=== PATIENT | female | born 1970 | race Caucasian/White ===

== ENCOUNTER 2018-03-11 18:24 | Inpatient (IN) | payer OTHER ==
[~2018-03-11] VITALS: Ht 170.2 cm; Wt 65.0 kg
[~2018-03-11 18:24] MED LIST: LEVE-5; OXCA600T3; [UNRECOGNIZED DRUG - OTHER]
[2018-03-11 21:51] VITALS: BP 123/71; PULSE 74; RESP 19
[2018-03-11 21:54] VITALS: PULSE 68
[2018-03-11] MEDS ORDERED: LEVE500S8 PO (21:58)
[2018-03-11] MEDS ORDERED: ATOR20TA38 PO (21:58)
[2018-03-11] MEDS ORDERED: LAMO100T83 PO (21:58)
[2018-03-11] MEDS ORDERED: LEVO-86 PO (21:58)
[2018-03-11] MEDS ORDERED: FLUO40CA10 PO (21:58)
[2018-03-11] MEDS ORDERED: OXYC-279 PO (21:58)
[2018-03-11] MEDS ORDERED: IBUP-1982 PO (21:58)
[2018-03-11] MEDS ORDERED: ALPR1TAB2 PO (21:58)
[2018-03-11] MEDS ORDERED: morphine SULFATE/PF (2 MG/2 ML) SYG IV STA (22:00)
[2018-03-11] MEDS: ONDANSETRON 4 MG INJ IV PRN (22:17)
[2018-03-11] MEDS: HEPARIN 5,000 UNIT/1 ML VIAL SC SCH (22:26)
[2018-03-11] MEDS ORDERED: HYDROCODONE/APAP (5/325) TAB PO PRN (22:30)
[2018-03-11] MEDS ORDERED: NACL 0.9% 3 ML SYG IV SCH (22:30)
[2018-03-11] MEDS ORDERED: BISACODYL (EC) 5 MG TAB PO PRN (22:30)
[2018-03-11] MEDS ORDERED: ACETAMINOPHEN 325 MG TAB PO PRN (22:30)
[2018-03-11] MEDS ORDERED: NITROGLYCERIN (SL) 0.4 MG TAB SL PRN (22:30)
[2018-03-11] MEDS ORDERED: DOCUSATE SODIUM 100 MG CAP PO PRN (22:30)
[2018-03-11 22:33] VITALS: Ht 170.2 cm; Wt 65.0 kg
--- NOTE | 2018-03-11 23:12 | HP ---
Date/Time of Note Date/Time of Note DATE: 03/11/18 TIME: 22:59 Assessment/Plan VTE Prophylaxis Pharmacological prophylaxis: heparin Assessment/Plan Hospital Course This is a 47-year female being admitted to the telemetry floor for: #1 multifocal large alveolitis: CT chest angiogram: Multifocal large alveolitis concerning for extrinsic allergic reaction, cryptogenic organizing pneumonia, or atypical infection. There is no evidence of pulmonary embolism. Patient at the current time does have an elevated white blood cell count but she is afebrile. At the current time will obtain blood cultures x2, will check respiratory studies and cultures, will check HIV. Will start patient Mom broad-spectrum antibiotics of vancomycin and Zosyn. Will consult pulmonary for further treatment strategy. We will also obtain an ABG. High-resolution chest CT in the a.m. Will check lactic acid level. Robitussin-DM for cough, Toradol/morphine for chest wall pain. Given the patient may have possible cryptogenic organizing pneumonia will also put the patient on daily dose of prednisone 60 mg p.o. #2 seizure disorder: Continue Keppra, Lamictal, will need to verify her lamictal dosing #3 hypothyroidism: We will check TSH, continue levothyroxine #4 hyperlipidemia: Check lipid panel #5 mood disorder: Patient has a history of depression, anxiety, will resume patient's home medications #6 DVT GI prophylaxis: Heparin, Protonix Further treatment strategy will be implemented as per the clinical course. Result Diagram: 03/11/188 Results 24hrs Laboratory Tests Test 03/11/18 22:28 White Blood Count 13.4 H Red Blood Count 3.21 L Hemoglobin 11.0 L Hematocrit 33.3 L Mean Corpuscular Volume 103.7 H Mean Corpuscular Hemoglobin 34.3 H Mean Corpuscular Hemoglobin Concent 33.0 Red Cell Distribution Width 12.0 Platelet Count 218 Mean Platelet Volume 9.3 Immature Granulocytes % 0.300 Neutrophils % 83.2 H Lymphocytes % 13.7 L Monocytes % 2.5 Eosinophils % 0.1 Basophils % 0.2 Nucleated Red Blood Cells % 0.0 Immature Granulocytes # 0.040 H Neutrophils # 11.2 H Lymphocytes # 1.8 Monocytes # 0.3 Eosinophils # 0.0 Basophils # 0.0 Nucleated Red Blood Cells # 0.0 HPI/ROS Admit Date/Time Admit Date/Time Mar 11, 2018 at 21:08 Hx of Present Illness Chief complaint: Cough This is a 47-year-old female with a history of seizures, migraines, chronic back pain, anxiety, depression, panic disorder who presented to [facility] with complaints of a cough. Patient reports that she originally was diagnosed on 03/06/2018 with a bronchitis and was started on antibiotics and given steroids. Her symptoms did not get better and she called her primary care doctor today who over the phone stated that she did not sound good and she wanted to go get evaluated again. She continues to have a cough as well as shortness of breath and dyspnea. She denies any fevers or chills. No sick contacts or recent travel. Pertinent laboratory findings at [facility] showed a a elevated d-dimer of 1.19 white blood cell count of 10.6 hemoglobin 11.6 hematocrit of 34.2 platelets of 225. Alk phos is elevated at 170 creatinine was 0.6. She underwent a CT angiogram of the chest which showed: Multifocal large alveolitis concerning for possible cryptogenic organizing pneumonia versus atypical infection. Patient was given ceftriaxone and azithromycin. Upon arrival to [facility] patient reports that she is having left lateral wall pain secondary to her persistent cough. She is trying not to cough as a cause of her pain. She denies any sick contacts. She does report that when her symptoms started in the beginning of March she was having dark brown sputum however at the current time she is not producing any more sputum with her cough. Pertinent laboratory findings from the transfer facility below, please see chart for full details: EKG: Normal sinus rhythm at approximately 83 bpm Influenza: Negative 03/11/2018: CT chest angiogram: Multifocal large alveolitis concerning for extrinsic allergic reaction, cryptogenic organizing pneumonia, or atypical infection. There is no evidence of pulmonary embolism. Allergies: IV Benadryl, tramadol Medications: See MAR ROS Const: As per HPI Eyes : No pain discharge or redness or change in visual acuity ENT: No pain, sore throat, congestion, congestion, dysphagia or discharge Respiratory: As per HPI Cardiovascular: No chest pain, palpitation, PND, or edema GI : no change in appetite, abdominal pain, nausea, vomiting, diarrhea, constipation, or change in the color his stool Genitourinary: No dysuria, hematuria, flank pain , discharge or CVA tenderness Musculoskeletal: As per HPI Skin: No rash, bruising or hives Neuro: No headache, dizziness, syncope, seizure, focal weakness Endocrine: No polyuria, polydipsia, temperature intolerance Psych: No hallucination, depression, anxiety or suicidal ideation PMH/Family/Social Past Medical History Hypothyroidism, hyperlipidemia, history of seizures, migraines, depression, anxiety Medications Current Medications IV Flush (NS 3 ml) 3 ml PER PROTOCOL IV ; Start 03/11/18 at 22:30 Ondansetron HCl (Zofran Inj) 4 mg Q6H PRN IV NAUSEA AND/OR VOMITING Last administered on 03/11/18at 22:17; Admin Dose 4 MG; Start 03/11/18 at 22:30 Nitroglycerin (Nitroglycerin (Sl Tab) 0.4 Mg) 1 tab Q5M PRN SL CHEST PAIN; Start 03/11/18 at 22:30 Acetaminophen (Tylenol Tab) 650 mg Q6H PRN PO PAIN LEVEL 1-3 OR FEVER; Start 03/11/18 at 22:30 Acetaminophen/ Hydrocodone Bitart ([place] (5/325)) 1 tab Q6H PRN PO PAIN LEVEL 4-6; Start 03/11/18 at 22:30 Morphine Sulfate (morphine SULFATE (PF)) 1 mg Q4H PRN IV PAIN LEVEL 7-10; Start 03/11/18 at 22:30 Docusate Sodium (Colace) 100 mg Q12H PRN PO CONSTIPATION; Start 03/11/18 at 22:30 Bisacodyl (Dulcolax) 5 mg DAILY PRN PO CONSTIPATION; Start 03/11/18 at 22:30 Heparin Sodium (Porcine) (Heparin (5000 Units/1ml)) 5,000 unit Q8 SC Last administered on 03/11/18at 22:26; Admin Dose 5,000 UNIT; Start 03/11/18 at 22:30 Coded Allergies: diphenhydramine (Verified Allergy, Mild, SEIZURE, 09/20/09) tramadol (Verified Allergy, Mild, SEIZURE, 09/20/09) Past Surgical History Bilateral ovarian cyst removal Family History Significant Family History: no pertinent family hx Social History Alcohol Use: none Smoking Status: Never smoker Drug Use: none Exam/Review of Systems Vital Signs Vitals Vital Signs Date Temp Pulse Resp B/P (MAP) Pulse Ox O2 O2 Flow FiO2 Time Delivery Rate 03/11/18 98.0 74 19 123/71 95 21:51 (88) Exam Exam General: Patient is currently lying in bed she is complaining of moderate pain on the left chest wall with her cough, she does look uncomfortable with a cough HEENT: Atraumatic, normocephalic. The pupils are equal, round and reactive. Extraocular motor are intact Neck: Supple with full range of motion. No rigidity or meningismus Chest: Left lateral chest wall tenderness to palpation Lungs: Coarse breath sounds bilaterally, full respiratory examination limited secondary to patient not being able to perform deep breathing secondary to lateral chest wall pain, cough persistent and nonproductive Heart: Normal S1-S2, Regular rhythm and rate. Abdomen: Soft , nontender, nondistended , bowel sounds are present. No guarding no rebound tenderness , No masses or organomegaly. No costovertebral temporal angle mass Extremities: Normal to inspection, no edema no cyanosis Neurologic: Normal mental status, speech normal, cranial nerves II through XII are intact, motor and sensory are intact, GENIE RICKS Mar 11, 2018 23:09
[2018-03-11] MEDS: GUAIFENESIN/DM 5ML CUP PO PRN (23:38)
[2018-03-11] MEDS: KETOROLAC 15 MG INJ IV SCH (23:39)
[2018-03-12] VITALS (10 sets, daily range): BP systolic 107–128; BP diastolic 64–74; PULSE 63–106; RESP 16–18
[2018-03-12] MEDS ORDERED: VANCOMYCIN IV PER PHARMACY XX SCH
[2018-03-12] MEDS: PIPER-TAZO 3.375 GM IV (PMX) 100 ML IVPB SCH ×4 (00:39→18:51)
[2018-03-12] MEDS: ALPRAZOLAM 1 MG TAB PO PRN ×3 (00:44→17:13)
[2018-03-12] MEDS ORDERED: LAMOTRIGINE 100 MG TAB PO SCH (01:00)
[2018-03-12] MEDS: LEVETIRACETAM 750 MG TAB PO SCH ×3 (02:15→21:03)
[2018-03-12] MEDS: morphine SULFATE/PF (2 MG/2 ML) SYG IV PRN ×5 (02:15→21:11)
[2018-03-12] MEDS ORDERED: VANCOMYCIN 1.25 GM in SOD CHLORIDE 0.9% 250 ML IVPB SCH (02:30)
[2018-03-12] MEDS: GUAIFENESIN/DM 5ML CUP PO PRN ×3 (05:45→21:10)
[2018-03-12] MEDS: KETOROLAC 15 MG INJ IV SCH ×3 (05:45→17:13)
[2018-03-12] MEDS: HEPARIN 5,000 UNIT/1 ML VIAL SC SCH ×3 (05:57→21:22)
[2018-03-12] MEDS: LEVOTHYROXINE 100 MCG TAB PO SCH (06:22)
[2018-03-12] MEDS: FLUOXETINE 20 MG CAP PO SCH (08:29)
[2018-03-12] MEDS ORDERED: predniSONE 20 MG TAB PO SCH (09:00)
[2018-03-12] MEDS: METHYLPREDNISOLONE 40 MG INJ IV SCH ×2 (11:42→17:12)
--- NOTE | 2018-03-12 13:07 | CONS ---
DATE OF ADMISSION: 03/11/2018 DATE OF CONSULTATION: 03/12/2018 TYPE OF CONSULTATION: Pulmonary. REASON FOR CONSULTATION: Shortness of breath. Thank you, Dr. Mendieta, for this consultation. HISTORY OF PRESENT ILLNESS: This is a 47-year-old lady with extensive tobacco history, ongoing tobac co use, comes in with several day history of weakness and increasing cough, congestion, and severe le ft-sided pleuritic pain. Failed outpatient steroids and antibiotics, now presents with significant d yspnea and pleurisy. PAST MEDICAL HISTORY: 1. Seizure disorder. 2. Likely underlying chronic obstructive pulmonary disease. 3. Hyperlipidemia. 4. Hypothyroidism. MEDICATIONS: Per chart. ALLERGIES: 1. DIPHENHYDRAMINE 2. TRAMADOL. SOCIAL HISTORY: The patient has a positive tobacco history. States she smokes 1 pack per week for m any years. Occasional alcohol, no history of drug abuse. FAMILY HISTORY: Noncontributory. SYSTEMS REVIEW: A 12-point review of systems was negative other than that mentioned above. GENERAL: Well-nourished, well-developed lady. VITAL SIGNS: Comfortable at rest, pulse of 99, blood pressure 114/65, O2 saturation 96%, FIO2 of 2 l iters. NECK: Supple. No JVD or lymphadenopathy. CARDIAC: S1, S2, no added sounds or murmurs. CHEST: Diminished air entry bilaterally. ABDOMEN: Soft, nontender. No guarding or rebound. EXTREMITIES: No cyanosis, clubbing or edema. NEUROLOGIC: Grossly intact. No focal deficits. LABORATORY DATA: White count 13.1, hemoglobin 10.6, platelets of 234. Chemistry within normal limit s. Arterial blood gas PaO2 on 3 liters was 77. DIAGNOSTIC DATA: Chest CT demonstrated diffuse patchy ground glass opacification and mild interlobul ar septal thickening, mildly dilated pulmonary artery. IMPRESSION AND PLAN: 1. Acute hypoxemic respiratory failure with pleuritic chest pain, likely secondary to infective exac erbation of COPD exacerbation. 2. The patient will need continued bronchodilators, supplemental O2, Intravenous steroids, broad sp ectrum antibiotics, DVT and GI prophylaxis. If there is no radiographic improvement following curren t course of therapy the patient may require bronchoscopy with biopsy and lavage. Dictated By: ÁNGEL FRASER/CASTILLO Conf#: [id number] DID#: [id number] CC: CECE LR MD;*[facility]*
--- NOTE | 2018-03-12 14:26 | PN ---
Date/Time of Note Date/Time of Note DATE: 03/12/18 TIME: 14:09 Assessment/Plan VTE Prophylaxis Risk score (from Ns)>0 risk: 1 SCD applied (from Ns): Yes Pharmacological prophylaxis: heparin Lines/Catheters IV Catheter Type (from Nrs): Saline Lock Urinary Cath still in place: No Assessment/Plan Assessment/Plan 1. Diffuse pulmonary infiltrates, unclear etiology, will discuss with Dr. Machado 2. Seizure disorder: Continue Keppra, Lamictal, will need to verify her lamictal dosing 3. Hypothyroidism: continue levothyroxine 4. Hyperlipidemia: 5. mood disorder: Patient has a history of depression, anxiety, will resume patient's home medications 6. DVT GI prophylaxis: Heparin, Result Diagram: 03/12/1856 03/12/18555 Results 24hrs Laboratory Tests Test 03/11/18 22:28 03/12/18 00:30 03/12/18 05:56 03/12/18 08:00 White Blood Count 13.4 H 13.1 H Red Blood Count 3.21 L 3.12 L Hemoglobin 11.0 L 10.6 L Hematocrit 33.3 L 30.9 L Mean Corpuscular 103.7 H 99.0 Volume Mean Corpuscular 34.3 H 34.0 H Hemoglobin Mean Corpuscular 33.0 34.3 Hemoglobin Concent Red Cell 12.0 11.9 Distribution Width Platelet Count 218 234 Mean Platelet 9.3 9.4 Volume Immature 0.300 0.500 H Granulocytes % Neutrophils % 83.2 H 77.4 H Lymphocytes % 13.7 L 18.5 Monocytes % 2.5 2.5 Eosinophils % 0.1 0.8 Basophils % 0.2 0.3 Nucleated Red 0.0 0.0 Blood Cells % Immature 0.040 H 0.060 H Granulocytes # Neutrophils # 11.2 H 10.1 H Lymphocytes # 1.8 2.4 Monocytes # 0.3 0.3 Eosinophils # 0.0 0.1 Basophils # 0.0 0.0 Nucleated Red 0.0 0.0 Blood Cells # Sodium Level 137 139 Potassium Level 4.7 4.2 Chloride Level 105 104 Carbon Dioxide 26 27 Level Anion Gap 6 8 Blood Urea 9 7 Nitrogen Creatinine 0.52 0.54 Est Glomerular > 60 > 60 Filtrat Rate mL/min Glucose Level 99 115 Lactic Acid Level 2.1 *H 0.9 Calcium Level 9.3 9.2 Total Bilirubin 0.0 L 0.1 L Direct Bilirubin 0.00 0.00 Indirect Bilirubin 0.0 0.1 Aspartate Amino 41 30 Transf (AST/SGOT) Alanine 40 33 Aminotransferase ( ALT/SGPT) Alkaline 151 H 134 H Phosphatase Total Protein 6.3 6.2 Albumin 3.4 3.2 L Globulin 2.90 3.00 Albumin/Globulin 1.17 1.06 Ratio HIV (1&2) Antibody NEGATIVE Hemoglobin A1c 5.4 Magnesium Level 1.7 Triglycerides 99 Level Cholesterol Level 126 LDL Cholesterol, 70 Calculated HDL Cholesterol 36 L Cholesterol/HDL 3.5 Ratio Thyroid 0.397 L Stimulating Hormone (TSH) Blood Gas Specimen Blood arterial Source Arterial Blood 03/12/2018 8:10:47 Date Drawn AM Arterial Blood pH 7.391 (Temp corrected) Arterial Blood 40.6 pCO2 (Temp correct) Arterial Blood pO2 77.8 L (Temp corrected) Arterial Blood 24.1 HCO3 Arterial Blood -0.8 Base Excess Arterial Blood 94.3 L Oxygen Saturation Lucio Test ACCEPTAB Arterial Blood Gas Left Radial Puncture Site Arterial 1.0 Blood Carboxyhemog lobin Arterial Blood 0 Methemoglobin Blood Gas A-a O2 110.1 H Differential Oxyhemoglobin 93.4 Percent Blood Gas 37.0 Temperature Blood Gas Modality NASAL CANNULA FiO2 33.0 Blood Gas Notified TM Whom Blood Gas Notified 03/12/2018 8:18:14 Time AM Test 03/12/18 10:12 Urine Color YELLOW Urine Clarity CLEAR Urine pH 7.0 Urine Specific 1.009 [place] Urine Ketones TRACE A Urine Nitrite NEGATIVE Urine Bilirubin NEGATIVE Urine Urobilinogen 1+ H Urine Leukocyte NEGATIVE Esterase Urine Microscopic 3 RBC Urine Microscopic 1 WBC Urine Hemoglobin 2+ H Urine Glucose NEGATIVE Urine Total NEGATIVE Protein Urine NEGATIVE Test Subjective 24 Hr Interval Summary Free Text/Dictation cough with shortness of breath Exam/Review of Systems Vital Signs Vitals Vital Signs Date Temp Pulse Resp B/P (MAP) Pulse Ox O2 O2 Flow FiO2 Time Delivery Rate 03/12/18 94 14:06 03/12/18 98.6 16 110/66 92 11:33 (81) 03/12/18 Nasal 2.0 08:30 Cannula Intake and Output 03/11/18 03/11/18 03/12/18 1515:00 23:00 07:00 IntakeIntake Total 600 ml 600 ml BalanceBalance 600 ml 600 ml Exam Constitutional: alert, oriented, well developed Head: normocephalic, atraumatic Eyes: nl conjunctiva, EOMI, nl lids ENMT: nl external ears & nose, nl lips & teeth, nl nasal mucosa & septum Neck: supple, non-tender Respiratory: crackles/rales, wheezing Cardiovascular: regular rate and rhythm, nl pulses; No bruits, No diastolic murmur, No edema, No gallop, No irregular rhythm, No jugular venous distention (JVD), No murmurs/extra sounds, No rub, No systolic murmur, No S3, No S4, No other Gastrointestinal: soft, nl liver, spleen, non-tender Musculoskeletal: nl extremities to inspection Extremities: normal pulses; No calf tenderness, No cyanosis, No clubbing, No edema, No pitting pedal edema, No palpable cord, No tenderness, No other 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: 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, nl mental status, nl speech, nl strength Skin: nl turgor Medications Medications Current Medications IV Flush (NS 3 ml) 3 ml PER PROTOCOL IV ; Start 03/11/18 at 22:30 Ondansetron HCl (Zofran Inj) 4 mg Q6H PRN IV NAUSEA AND/OR VOMITING Last administered on 03/11/18at 22:17; Admin Dose 4 MG; Start 03/11/18 at 22:30 Nitroglycerin (Nitroglycerin (Sl Tab) 0.4 Mg) 1 tab Q5M PRN SL CHEST PAIN; Start 03/11/18 at 22:30 Acetaminophen (Tylenol Tab) 650 mg Q6H PRN PO PAIN LEVEL 1-3 OR FEVER; Start 03/11/18 at 22:30 Acetaminophen/ Hydrocodone Bitart ([place] (5/325)) 1 tab Q6H PRN PO PAIN LEVEL 4-6; Start 03/11/18 at 22:30 Morphine Sulfate (morphine SULFATE (PF)) 1 mg Q4H PRN IV PAIN LEVEL 7-10 Last administered on 03/12/18at 10:21; Admin Dose 1 MG; Start 03/11/18 at 22:30 Docusate Sodium (Colace) 100 mg Q12H PRN PO CONSTIPATION; Start 03/11/18 at 22:30 Bisacodyl (Dulcolax) 5 mg DAILY PRN PO CONSTIPATION; Start 03/11/18 at 22:30 Heparin Sodium (Porcine) (Heparin (5000 Units/1ml)) 5,000 unit Q8 SC Last administered on 03/12/18 13:54; Admin Dose 5,000 UNIT; Start 03/11/18 at 22:30 Ketorolac Tromethamine (Toradol) 15 mg Q6H IV Last administered on 03/12/18 11:42; Admin Dose 15 MG; Start 03/11/18 at 23:30; Stop 03/12/18 at 23:29 Guaifenesin/ Dextromethorphan (Robitussin Dm Liquid Cup) 10 ml Q4H PRN PO COUGH Last administered on 03/12/18 13:45; Admin Dose 10 ML; Start 03/11/18 at 23:30 Vancomycin HCl (Vanco Iv Per Pharmacy) VANCOMYCIN PER PHARMACY PER PROTOCOL XX ; Start 03/12/18 at 00:00 Piperacillin Sod/ Tazobactam Sod 100 ml @ 200 mls/hr Q6 IVPB Last administered on 03/12/18 11:43; Admin Dose 200 MLS/HR; Start 03/12/18 at 00:00 Alprazolam (Xanax) 1 mg Q8H PRN PO ANXIETY Last administered on 03/12/18 08:32; Admin Dose 1 MG; Start 03/11/18 at 23:30 Atorvastatin Calcium (Lipitor) 20 mg QHS PO ; Start 03/12/18 at 21:00 Fluoxetine HCl (Prozac) 40 mg DAILY PO Last administered on 03/12/18 08:29; Admin Dose 40 MG; Start 03/12/18 at 09:00 Lamotrigine (Lamictal) 500 mg BID PO ; Start 03/11/18 at 23:30; Status UNV Levetiracetam (Keppra) 750 mg BID PO Last administered on 03/12/18 08:30; Admin Dose 750 MG; Start 03/11/18 at 23:30 Levothyroxine Sodium (Synthroid) 100 mcg BEFORE BREAKFAST PO Last administered on 03/12/18 06:22; Admin Dose 100 MCG; Start 03/12/18 at 07:00 Methylprednisolone Sodium Succinate (Solu-Medrol) 40 mg Q6 IV Last administered on 03/12/18at 11:42; Admin Dose 40 MG; Start 03/12/18 at 12:00 Vancomycin HCl 250 ml @ 125 mls/hr Q12H IVPB ; Start 03/12/18 at 15:00 Miscellaneous Information (*Rx Drug Level Order Reminder*) VANCO TROUGH 03/13 @ 1,400 ONCE ONCE XX ; Start 03/13/18 at 14:00; Stop 03/13/18 at 14:01 AGA ALMARAZ MD Mar 12, 2018 14:19
[2018-03-12] MEDS: VANCOMYCIN 1 GM 250 ML IVPB SCH (15:23)
[2018-03-12] MEDS: LAMOTRIGINE 100 MG TAB PO SCH (21:02)
[2018-03-12] MEDS: ATORVASTATIN 20 MG TAB PO SCH (21:02)
[2018-03-12] MEDS: ONDANSETRON 4 MG INJ IV PRN (21:10)
[2018-03-13] VITALS (10 sets, daily range): BP systolic 107–118; BP diastolic 55–71; PULSE 50–86; RESP 16–20
[2018-03-13] MEDS: METHYLPREDNISOLONE 40 MG INJ IV SCH ×5 (00:35→23:44)
[2018-03-13] MEDS: PIPER-TAZO 3.375 GM IV (PMX) 100 ML IVPB SCH ×5 (00:35→23:37)
[2018-03-13] MEDS: GUAIFENESIN/DM 5ML CUP PO PRN ×5 (01:18→20:21)
[2018-03-13] MEDS: ALPRAZOLAM 1 MG TAB PO PRN ×4 (01:18→21:34)
[2018-03-13] MEDS: morphine SULFATE/PF (2 MG/2 ML) SYG IV PRN ×6 (01:19→23:10)
[2018-03-13] MEDS: VANCOMYCIN 1 GM 250 ML IVPB SCH ×3 (02:10→21:25)
[2018-03-13] MEDS: LEVOTHYROXINE 100 MCG TAB PO SCH (05:25)
[2018-03-13] MEDS: HEPARIN 5,000 UNIT/1 ML VIAL SC SCH ×3 (06:00→21:33)
[2018-03-13] MEDS: LAMOTRIGINE 100 MG TAB PO SCH ×2 (08:10→20:19)
[2018-03-13] MEDS: LEVETIRACETAM 750 MG TAB PO SCH ×2 (08:11→20:19)
[2018-03-13] MEDS: FLUOXETINE 20 MG CAP PO SCH (08:11)
--- NOTE | 2018-03-13 14:35 | PN ---
Date/Time of Note Date/Time of Note DATE: 03/13/18 TIME: 14:15 Assessment/Plan VTE Prophylaxis Risk score (from Ns)>0 risk: 2 SCD applied (from Ns): Yes Pharmacological prophylaxis: heparin Lines/Catheters IV [facility] (from [facility] Saline Lock Urinary Cath still in place: No Assessment/Plan Assessment/Plan 1. Diffuse pulmonary infiltrates, unclear etiology, send serology tests, ?bronchoscopy 2. Seizure disorder: Continue Keppra, Lamictal, will need to verify her lamictal dosing 3. Hypothyroidism: continue levothyroxine 4. Hyperlipidemia: 5. mood disorder: Patient has a history of depression, anxiety, will resume patient's home medications 6. DVT GI prophylaxis: Heparin, Result Diagram: 03/13/1872603/13/18726 Results 24hrs Laboratory Tests Test 03/13/18 07:27 White Blood Count 13.6 H Red Blood Count 3.44 L Hemoglobin 11.7 L Hematocrit 34.1 L Mean Corpuscular Volume 99.1 Mean Corpuscular Hemoglobin 34.0 H Mean Corpuscular Hemoglobin Concent 34.3 Red Cell Distribution Width 11.9 Platelet Count 304 # Mean Platelet Volume 9.7 Immature Granulocytes % 0.700 H Neutrophils % 87.5 H Lymphocytes % 9.4 L Monocytes % 2.2 Eosinophils % 0.1 Basophils % 0.1 Nucleated Red Blood Cells % 0.0 Immature Granulocytes # 0.090 H Neutrophils # 11.9 H Lymphocytes # 1.3 Monocytes # 0.3 Eosinophils # 0.0 Basophils # 0.0 Nucleated Red Blood Cells # 0.0 Sodium Level 139 Potassium Level 4.8 Chloride Level 108 Carbon Dioxide Level 27 Anion Gap 4 L Blood Urea Nitrogen 11 Creatinine 0.58 Est Glomerular Filtrat Rate mL/min > 60 Glucose Level 128 Calcium Level 9.6 Vitamin B12 Level 757 Folate > 20.0 H Subjective 24 Hr Interval Summary Free Text/Dictation cough, shortness of breath Exam/Review of Systems Vital Signs Vitals Vital Signs Date Temp Pulse Resp B/P (MAP) Pulse Ox O2 O2 Flow FiO2 Time Delivery Rate 03/13/18 72 13:02 03/13/18 97.9 16 117/61 90 11:18 (79) 03/13/18 Nasal 2.0 07:52 Cannula Intake and Output 03/12/18 03/12/18 03/13/18 1515:00 23:00 07:00 IntakeIntake Total 1000 ml BalanceBalance 1000 ml Exam Constitutional: alert, oriented, well developed Head: normocephalic, atraumatic Eyes: nl conjunctiva, EOMI, nl lids, nl sclera, PERRL ENMT: nl external ears & nose, nl lips & teeth, nl nasal mucosa & septum Neck: supple Respiratory: crackles/rales, wheezing Cardiovascular: regular rate and rhythm, nl pulses; No bruits, No diastolic murmur, No edema, No gallop, No irregular rhythm, No jugular venous distention (JVD), No murmurs/extra sounds, No rub, No systolic murmur, No S3, No S4, No other Gastrointestinal: soft, nl liver, spleen, non-tender Musculoskeletal: nl extremities to inspection Extremities: normal pulses; No calf tenderness, No cyanosis, No clubbing, No edema, No pitting pedal edema, No palpable cord, No tenderness, No other 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, nl mental status, nl speech, nl strength Medications Medications Current Medications IV Flush (NS 3 ml) 3 ml PER PROTOCOL IV ; Start 03/11/18 at 22:30 Ondansetron HCl (Zofran Inj) 4 mg Q6H PRN IV NAUSEA AND/OR VOMITING Last administered on 03/12/18at 21:10; Admin Dose 4 MG; Start 03/11/18 at 22:30 Nitroglycerin (Nitroglycerin (Sl Tab) 0.4 Mg) 1 tab Q5M PRN SL CHEST PAIN; Start 03/11/18 at 22:30 Acetaminophen (Tylenol Tab) 650 mg Q6H PRN PO PAIN LEVEL 1-3 OR FEVER; Start 03/11/18 at 22:30 Acetaminophen/ Hydrocodone Bitart ([place] (5/325)) 1 tab Q6H PRN PO PAIN LEVEL 4-6; Start 03/11/18 at 22:30 Morphine Sulfate (morphine SULFATE (PF)) 1 mg Q4H PRN IV PAIN LEVEL 7-10 Last administered on 03/13/18at 13:40; Admin Dose 1 MG; Start 03/11/18 at 22:30 Docusate Sodium (Colace) 100 mg Q12H PRN PO CONSTIPATION; Start 03/11/18 at 22:30 Bisacodyl (Dulcolax) 5 mg DAILY PRN PO CONSTIPATION; Start 03/11/18 at 22:30 Heparin Sodium (Porcine) (Heparin (5000 Units/1ml)) 5,000 unit Q8 SC Last administered on 03/13/18 13:46; Admin Dose 5,000 UNIT; Start 03/11/18 at 22:30 Guaifenesin/ Dextromethorphan (Robitussin Dm Liquid Cup) 10 ml Q4H PRN PO COUGH Last administered on 03/13/18 09:41; Admin Dose 10 ML; Start 03/11/18 at 23:30 Vancomycin HCl (Vanco Iv Per Pharmacy) VANCOMYCIN PER PHARMACY PER PROTOCOL XX ; Start 03/12/18 at 00:00 Piperacillin Sod/ Tazobactam Sod 100 ml @ 200 mls/hr Q6 IVPB Last administered on 03/13/18 11:38; Admin Dose 200 MLS/HR; Start 03/12/18 at 00:00 Atorvastatin Calcium (Lipitor) 20 mg QHS PO Last administered on 03/12/18 21:02; Admin Dose 20 MG; Start 03/12/18 at 21:00 Fluoxetine HCl (Prozac) 40 mg DAILY PO Last administered on 03/13/18 08:11; Admin Dose 40 MG; Start 03/12/18 at 09:00 Lamotrigine (Lamictal) 100 mg BID PO Last administered on 03/13/18 08:10; Admin Dose 100 MG; Start 03/12/18 at 21:00 Levetiracetam (Keppra) 750 mg BID PO Last administered on 03/13/18 08:11; Admin Dose 750 MG; Start 03/11/18 at 23:30 Levothyroxine Sodium (Synthroid) 100 mcg BEFORE BREAKFAST PO Last administered on 03/13/18 05:25; Admin Dose 100 MCG; Start 03/12/18 at 07:00 Methylprednisolone Sodium Succinate (Solu-Medrol) 40 mg Q6 IV Last administered on 03/13/18 11:38; Admin Dose 40 MG; Start 03/12/18 at 12:00 Vancomycin HCl 250 ml @ 125 mls/hr Q12H IVPB Last administered on 03/13/18 02:10; Admin Dose 125 MLS/HR; Start 03/12/18 at 15:00 Alprazolam (Xanax) 1 mg Q6 PRN PO ANXIETY; Start 03/13/18 at 14:00 AGA ALMARAZ MD Mar 13, 2018 14:35
[2018-03-13] MEDS ORDERED: VANCOMYCIN 1 GM 250 ML IVPB SCH (15:30)
--- NOTE | 2018-03-13 15:42 | CONS ---
Date/Time of Note Date/Time of Note DATE: 03/13/18 TIME: 15:36 Consult Date/Type/Reason Admit Date/Time Mar 11, 2018 at 21:08 Initial Consult Date Type of Consultation: Pulm Subjective Still with significant SOB and pleuritic chest pain. Objective Vital Signs Date Temp Pulse Resp B/P (MAP) Pulse Ox O2 O2 Flow FiO2 Time Delivery Rate 03/13/18 97.6 68 16 115/63 95 15:23 (80) 03/13/18 Nasal 2.0 07:52 Cannula Intake and Output 03/12/18 03/12/18 03/13/18 1515:00 23:00 07:00 IntakeIntake Total 1000 ml BalanceBalance 1000 ml Exam GENERAL: Well-nourished, well-developed lady. VITAL SIGNS: NECK: Supple. No JVD or lymphadenopathy. CARDIAC: S1, S2, no added sounds or murmurs. CHEST: Diminished air entry bilaterally. Exp wheeze. ABDOMEN: Soft, nontender. No guarding or rebound. EXTREMITIES: No cyanosis, clubbing or edema. NEUROLOGIC: Grossly intact. No focal deficits. Results/Medications Result Diagram: 03/13/1872603/13/18726 Results 24 hrs Laboratory Tests Test 03/13/18 07:27 03/13/18 13:52 White Blood Count 13.6 H Red Blood Count 3.44 L Hemoglobin 11.7 L Hematocrit 34.1 L Mean Corpuscular Volume 99.1 Mean Corpuscular Hemoglobin 34.0 H Mean Corpuscular Hemoglobin Concent 34.3 Red Cell Distribution Width 11.9 Platelet Count 304 # Mean Platelet Volume 9.7 Immature Granulocytes % 0.700 H Neutrophils % 87.5 H Lymphocytes % 9.4 L Monocytes % 2.2 Eosinophils % 0.1 Basophils % 0.1 Nucleated Red Blood Cells % 0.0 Immature Granulocytes # 0.090 H Neutrophils # 11.9 H Lymphocytes # 1.3 Monocytes # 0.3 Eosinophils # 0.0 Basophils # 0.0 Nucleated Red Blood Cells # 0.0 Erythrocyte Sedimentation Rate 80 H Sodium Level 139 Potassium Level 4.8 Chloride Level 108 Carbon Dioxide Level 27 Anion Gap 4 L Blood Urea Nitrogen 11 Creatinine 0.58 Est Glomerular Filtrat Rate mL/min > 60 Glucose Level 128 Calcium Level 9.6 Vitamin B12 Level 757 Folate > 20.0 H Vancomycin Level Trough < 5.0 L Medications Current Medications IV Flush (NS 3 ml) 3 ml PER PROTOCOL IV ; Start 03/11/18 at 22:30 Ondansetron HCl (Zofran Inj) 4 mg Q6H PRN IV NAUSEA AND/OR VOMITING Last admini stered on 03/12/18at 21:10; Admin Dose 4 MG; Start 03/11/18 at 22:30 Nitroglycerin (Nitroglycerin (Sl Tab) 0.4 Mg) 1 tab Q5M PRN SL CHEST PAIN; Start 03/11/18 at 22:30 Acetaminophen (Tylenol Tab) 650 mg Q6H PRN PO PAIN LEVEL 1-3 OR FEVER; Start 03/11/18 at 22:30 Acetaminophen/ Hydrocodone Bitart ([place] (5/325)) 1 tab Q6H PRN PO PAIN LEVEL 4-6; Start 03/11/18 at 22:30 Morphine Sulfate (morphine SULFATE (PF)) 1 mg Q4H PRN IV PAIN LEVEL 7-10 Last administered on 03/13/18at 13:40; Admin Dose 1 MG; Start 03/11/18 at 22:30 Docusate Sodium (Colace) 100 mg Q12H PRN PO CONSTIPATION; Start 03/11/18 at 22:30 Bisacodyl (Dulcolax) 5 mg DAILY PRN PO CONSTIPATION; Start 03/11/18 at 22:30 Heparin Sodium (Porcine) (Heparin (5000 Units/1ml)) 5,000 unit Q8 SC Last administered on 03/13/18at 13:46; Admin Dose 5,000 UNIT; Start 03/11/18 at 22:30 Guaifenesin/ Dextromethorphan (Robitussin Dm Liquid Cup) 10 ml Q4H PRN PO COUGH Last administered on 03/13/18at 09:41; Admin Dose 10 ML; Start 03/11/18 at 23:30 Vancomycin HCl (Vanco Iv Per Pharmacy) VANCOMYCIN PER PHARMACY PER PROTOCOL XX ; Start 03/12/18 at 00:00 Piperacillin Sod/ Tazobactam Sod 100 ml @ 200 mls/hr Q6 IVPB Last administered on 03/13/18at 11:38; Admin Dose 200 MLS/HR; Start 03/12/18 at 00:00 Atorvastatin Calcium (Lipitor) 20 mg QHS PO Last administered on 03/12/18 21:02; Admin Dose 20 MG; Start 03/12/18 at 21:00 Fluoxetine HCl (Prozac) 40 mg DAILY PO Last administered on 03/13/18 08:11; Admin Dose 40 MG; Start 03/12/18 at 09:00 Lamotrigine (Lamictal) 100 mg BID PO Last administered on 03/13/18 08:10; Admin Dose 100 MG; Start 03/12/18 at 21:00 Levetiracetam (Keppra) 750 mg BID PO Last administered on 03/13/18 08:11; Admin Dose 750 MG; Start 03/11/18 at 23:30 Levothyroxine Sodium (Synthroid) 100 mcg BEFORE BREAKFAST PO Last administered on 03/13/18 05:25; Admin Dose 100 MCG; Start 03/12/18 at 07:00 Methylprednisolone Sodium Succinate (Solu-Medrol) 40 mg Q6 IV Last administered on 03/13/18 11:38; Admin Dose 40 MG; Start 03/12/18 at 12:00 Vancomycin HCl 250 ml @ 125 mls/hr Q12H IVPB Last administered on 03/13/18 15:27; Admin Dose 125 MLS/HR; Start 03/12/18 at 15:00; Stop 03/13/18 at 18:00 Alprazolam (Xanax) 1 mg Q6 PRN PO ANXIETY Last administered on 03/13/18 15:01; Admin Dose 1 MG; Start 03/13/18 at 14:00 Vancomycin HCl 250 ml @ 125 mls/hr Q8H IVPB ; Start 03/13/18 at 22:00 Assessment/Plan Chief Complaint/Hosp Course IMPRESSION 1. Acute hypoxemic respiratory failure with pleuritic chest pain, likely secondary to infective exacerbation of COPD exacerbation. Mosaic pattern on CT chest has wide differential including air trapping small airways, bronchiolitis, AIP. Plan 1. Continue steroid trial with bronchodilators and abx 2. Echo to eval for PAP ? 3. Repeat cxr in am. 4. May need bronchoscopy, discussed with patient. ÁNGEL ESPINOZA MD, [facility] Mar 13, 2018 15:42
[2018-03-13] MEDS: ALBUTEROL/IPRATROPIUM (NEB) 3 ML AMP HHN SCH ×2 (17:18→20:31)
[2018-03-13] MEDS: ATORVASTATIN 20 MG TAB PO SCH (20:19)
[2018-03-14] VITALS (12 sets, daily range): BP systolic 112–140; BP diastolic 54–84; PULSE 52–85; RESP 16–24
[2018-03-14] MEDS: morphine SULFATE/PF (2 MG/2 ML) SYG IV PRN ×3 (02:47→20:50)
[2018-03-14] MEDS ORDERED: KETOROLAC 15 MG INJ IV PRN (04:30)
[2018-03-14] MEDS: METHYLPREDNISOLONE 40 MG INJ IV SCH ×4 (05:22→23:26)
[2018-03-14] MEDS: LEVOTHYROXINE 100 MCG TAB PO SCH (05:23)
[2018-03-14] MEDS: PIPER-TAZO 3.375 GM IV (PMX) 100 ML IVPB SCH ×4 (05:23→23:26)
[2018-03-14] MEDS: HEPARIN 5,000 UNIT/1 ML VIAL SC SCH ×3 (05:29→21:07)
[2018-03-14] MEDS: ALPRAZOLAM 1 MG TAB PO PRN (05:31)
[2018-03-14] MEDS: GUAIFENESIN/DM 5ML CUP PO PRN ×2 (05:31→20:50)
[2018-03-14] MEDS: VANCOMYCIN 1 GM 250 ML IVPB SCH ×3 (06:15→20:50)
[2018-03-14] MEDS: LEVETIRACETAM 750 MG TAB PO SCH ×2 (08:41→20:50)
[2018-03-14] MEDS: LAMOTRIGINE 100 MG TAB PO SCH ×2 (08:41→20:50)
[2018-03-14] MEDS: FLUOXETINE 20 MG CAP PO SCH (08:41)
[2018-03-14] MEDS: ALBUTEROL/IPRATROPIUM (NEB) 3 ML AMP HHN SCH ×4 (08:51→21:00)
--- NOTE | 2018-03-14 11:28 | CONS ---
Date/Time of Note Date/Time of Note DATE: 03/14/18 TIME: 11:27 Consult Date/Type/Reason Admit Date/Time Mar 11, 2018 at 21:08 Initial Consult Date Type of Consultation: Pulm Subjective Significant improvement. Still has pleuritic chest pain but wheezing improving Objective Vital Signs Date Temp Pulse Resp B/P (MAP) Pulse Ox O2 O2 Flow FiO2 Time Delivery Rate 03/14/18 97.6 59 16 128/71 94 Room Air 11:11 (90) 03/14/18 21 08:51 03/14/18 2.0 07:44 Intake and Output 03/13/18 03/13/18 03/14/18 1515:00 23:00 07:00 IntakeIntake Total 100 ml 1450 ml 500 ml BalanceBalance 100 ml 1450 ml 500 ml Exam GENERAL: Well-nourished, well-developed lady. VITAL SIGNS: NECK: Supple. No JVD or lymphadenopathy. CARDIAC: S1, S2, no added sounds or murmurs. CHEST: Diminished air entry bilaterally. Exp wheeze. ABDOMEN: Soft, nontender. No guarding or rebound. EXTREMITIES: No cyanosis, clubbing or edema. NEUROLOGIC: Grossly intact. No focal deficits. Results/Medications Result Diagram: 03/14/18 0613 03/13/18 0727 Results 24 hrs Laboratory Tests Test 03/13/18 13:52 03/14/18 06:13 03/14/18 07:00 Vancomycin Level Trough < 5.0 L White Blood Count 8.7 # Red Blood Count 3.09 L Hemoglobin 10.5 L Hematocrit 31.4 L Mean Corpuscular Volume 101.6 H Mean Corpuscular Hemoglobin 34.0 H Mean Corpuscular 33.4 Hemoglobin Concent Red Cell Distribution Width 11.9 Platelet Count 298 Mean Platelet Volume 9.6 Immature Granulocytes % 0.300 Neutrophils % 61.6 Lymphocytes % 32.5 Monocytes % 5.0 Eosinophils % 0.5 Basophils % 0.1 Nucleated Red Blood Cells % 0.0 Immature Granulocytes # 0.030 Neutrophils # 5.3 Lymphocytes # 2.8 Monocytes # 0.4 Eosinophils # 0.0 Basophils # 0.0 Nucleated Red Blood Cells # 0.0 Blood Gas Specimen Source Blood arterial Arterial Blood Date Drawn 03/14/2018 8:00:28 AM Arterial Blood pH 7.433 (Temp corrected) Arterial Blood pCO2 38.5 (Temp correct) Arterial Blood pO2 74.5 L (Temp corrected) Arterial Blood HCO3 25.2 Arterial Blood Base Excess 1.0 Arterial Blood 94.2 L Oxygen Saturation Lucio Test ACCEPTAB Arterial Blood Gas Right Radial Puncture Site Arterial 0.3 Blood Carboxyhemoglobin Arterial Blood Methemoglobin 0.1 Blood Gas A-a O2 Differential 29.1 H Oxyhemoglobin Percent 93.8 Blood Gas Temperature 37.0 Blood Gas Modality ROOM AIR FiO2 21.0 Blood Gas Notified Whom TM Blood Gas Notified Time 03/14/2018 8:18:57 AM Medications Current Medications IV Flush (NS 3 ml) 3 ml PER PROTOCOL IV ; Start 03/11/18 at 22:30 Ondansetron HCl (Zofran Inj) 4 mg Q6H PRN IV NAUSEA AND/OR VOMITING Last administered on 03/12/18at 21:10; Admin Dose 4 MG; Start 03/11/18 at 22:30 Nitroglycerin (Nitroglycerin (Sl Tab) 0.4 Mg) 1 tab Q5M PRN SL CHEST PAIN; Start 03/11/18 at 22:30 Acetaminophen (Tylenol Tab) 650 mg Q6H PRN PO PAIN LEVEL 1-3 OR FEVER; Start 03/11/18 at 22:30 Acetaminophen/ Hydrocodone Bitart ([place] (5/325)) 1 tab Q6H PRN PO PAIN LEVEL 4-6 Last administered on 03/14/18at 08:47; Admin Dose 1 TAB; Start 03/11/18 at 22:30 Docusate Sodium (Colace) 100 mg Q12H PRN PO CONSTIPATION; Start 03/11/18 at 22:30 Bisacodyl (Dulcolax) 5 mg DAILY PRN PO CONSTIPATION; Start 03/11/18 at 22:30 Heparin Sodium (Porcine) (Heparin (5000 Units/1ml)) 5,000 unit Q8 SC Last a dministered on 03/14/18at 05:29; Admin Dose 5,000 UNIT; Start 03/11/18 at 22:30 Guaifenesin/ Dextromethorphan (Robitussin Dm Liquid Cup) 10 ml Q4H PRN PO COUGH Last administered on 03/14/18at 05:31; Admin Dose 10 ML; Start 03/11/18 at 23:30 Vancomycin HCl (Vanco Iv Per Pharmacy) VANCOMYCIN PER PHARMACY PER PROTOCOL XX ; Start 03/12/18 at 00:00 Piperacillin Sod/ Tazobactam Sod 100 ml @ 200 mls/hr Q6 IVPB Last administered on 03/14/18 05:23; Admin Dose 200 MLS/HR; Start 03/12/18 at 00:00 Atorvastatin Calcium (Lipitor) 20 mg QHS PO Last administered on 03/13/18 20:19; Admin Dose 20 MG; Start 03/12/18 at 21:00 Fluoxetine HCl (Prozac) 40 mg DAILY PO Last administered on 03/14/18 08:41; Admin Dose 40 MG; Start 03/12/18 at 09:00 Lamotrigine (Lamictal) 100 mg BID PO Last administered on 03/14/18 08:41; Admin Dose 100 MG; Start 03/12/18 at 21:00 Levetiracetam (Keppra) 750 mg BID PO Last administered on 03/14/18 08:41; Admin Dose 750 MG; Start 03/11/18 at 23:30 Levothyroxine Sodium (Synthroid) 100 mcg BEFORE BREAKFAST PO Last administered on 03/14/18 05:23; Admin Dose 100 MCG; Start 03/12/18 at 07:00 Methylprednisolone Sodium Succinate (Solu-Medrol) 40 mg Q6 IV Last administered on 03/14/18 05:22; Admin Dose 40 MG; Start 03/12/18 at 12:00 Vancomycin HCl 250 ml @ 125 mls/hr Q8H IVPB Last administered on 03/14/18 06:15; Admin Dose 125 MLS/HR; Start 03/13/18 at 22:00 Albuterol/ Ipratropium (Duoneb) 3 ml Q4HWA RESP THERAPY HHN Last administered on 03/14/18 08:51; Admin Dose 3 ML; Start 03/13/18 at 17:00 Ketorolac Tromethamine (Toradol) 15 mg Q6H PRN IV PAIN Last administered on 03/14/18 06:15; Admin Dose 15 MG; Start 03/14/18 at 04:30; Stop 03/17/18 at 04:29 Morphine Sulfate (morphine SULFATE (PF)) 1 mg Q4H PRN IV SEVERE PAIN LEVEL 7- 10; Start 03/14/18 at 11:00 Alprazolam (Xanax) 0.25 mg Q8H PRN PO ANXIETY; Start 03/14/18 at 11:00 Assessment/Plan Chief Complaint/Hosp Course IMPRESSION 1. Acute hypoxemic respiratory failure with pleuritic chest pain, likely secondary to infective exacerbation of COPD exacerbation. Mosaic pattern on CT chest has wide differential including air trapping small airways, bronchiolitis, AIP. Plan 1. Continue steroid trial with bronchodilators and abx 2. Encourage OOB 3. Repeat cxr shows resolution of infiltrates 4. Outpatient steroid taper and PFTs anticipate dc tomorrow Á[facility]EL ESPINOZA MD, [facility] Mar 14, 2018 11:28
[2018-03-14] MEDS ORDERED: LOSARTAN 25 MG TAB PO ONE (12:30)
[2018-03-14] MEDS: ALPRAZOLAM 0.25 MG TAB PO PRN (17:48)
--- NOTE | 2018-03-14 18:36 | PN ---
Date/Time of Note Date/Time of Note DATE: 03/14/18 TIME: 18:32 Assessment/Plan VTE Prophylaxis Risk score (from Ns)>0 risk: 2 SCD applied (from Ns): Yes Pharmacological prophylaxis: NA/contraindicated Pharm contraindication: low risk/ambulating Lines/Catheters IV Catheter Type (from Nrs): Saline Lock Urinary Cath still in place: No Assessment/Plan Assessment/Plan 1. Bilateral inflammatory airway disease -symptoms improving with RTC bronchodilator therapy -continue steroids, abx, antitussive -patient has outpatient appointment to see rheumatology 2. Seizure disorder: -Continue Keppra, Lamictal, 3. Concern for possible autoimmune d/o -patient has been copmmenced on putpt workup foir autoimmune d/o by her PCP -has pending rheum appt 4. Hyperlipidemia: 5. mood disorder: Patient has a history of depression, anxiety, -home medications have been resumed 6. Hypothyroidism -TSH low, hold levothyroxine for now, check free T3 and free t4 7. HTN: -good control on current regimen 8. Lethargy: -could be 2/2 meds, will have nurses ambulate patient DVT GI prophylaxis: Heparin, Dispo: one more day of IV abx possible d/c tomorrow if pain and overall status improved Result Diagram: 03/14/18 0613 03/13/18 0727 Results 24hrs Laboratory Tests Test 03/14/18 06:13 03/14/18 07:00 White Blood Count 8.7 # Red Blood Count 3.09 L Hemoglobin 10.5 L Hematocrit 31.4 L Mean Corpuscular Volume 101.6 H Mean Corpuscular Hemoglobin 34.0 H Mean Corpuscular Hemoglobin Concent 33.4 Red Cell Distribution Width 11.9 Platelet Count 298 Mean Platelet Volume 9.6 Immature Granulocytes % 0.300 Neutrophils % 61.6 Lymphocytes % 32.5 Monocytes % 5.0 Eosinophils % 0.5 Basophils % 0.1 Nucleated Red Blood Cells % 0.0 Immature Granulocytes # 0.030 Neutrophils # 5.3 Lymphocytes # 2.8 Monocytes # 0.4 Eosinophils # 0.0 Basophils # 0.0 Nucleated Red Blood Cells # 0.0 Blood Gas Specimen Source Blood arterial Arterial Blood Date Drawn 03/14/2018 8:00:28 AM Arterial Blood pH (Temp corrected) 7.433 Arterial Blood pCO2 (Temp correct) 38.5 Arterial Blood pO2 (Temp corrected) 74.5 L Arterial Blood HCO3 25.2 Arterial Blood Base Excess 1.0 Arterial Blood Oxygen Saturation 94.2 L Lucio Test ACCEPTAB Arterial Blood Gas Puncture Site Right Radial Arterial Blood Carboxyhemoglobin 0.3 Arterial Blood Methemoglobin 0.1 Blood Gas A-a O2 Differential 29.1 H Oxyhemoglobin Percent 93.8 Blood Gas Temperature 37.0 Blood Gas Modality ROOM AIR FiO2 21.0 Blood Gas Notified Whom TM Blood Gas Notified Time 03/14/2018 8:18:57 AM Subjective 24 Hr Interval Summary Free Text/Dictation still doesn't feel well, breathing improvevdwith addition of bronchodilators Exam/Review of Systems Vital Signs Vitals Vital Signs Date Temp Pulse Resp B/P (MAP) Pulse Ox O2 O2 Flow FiO2 Time Delivery Rate 03/14/18 76 20 96 21 16:46 03/14/18 98.0 116/69 Room Air 15:12 (85) 03/14/18 2.0 07:44 Intake and Output 03/13/18 03/13/18 03/14/18 1515:00 23:00 07:00 IntakeIntake Total 100 ml 1450 ml 500 ml BalanceBalance 100 ml 1450 ml 500 ml Exam Constitutional: alert, oriented, other (lethargic) Head: normocephalic Respiratory: diminished breath sounds, wheezing (RLL) Gastrointestinal: soft, non-tender, bowel sounds Extremities: No edema Medications Medications Current Medications IV Flush (NS 3 ml) 3 ml PER PROTOCOL IV ; Start 03/11/18 at 22:30 Ondansetron HCl (Zofran Inj) 4 mg Q6H PRN IV NAUSEA AND/OR VOMITING Last administered on 03/12/18at 21:10; Admin Dose 4 MG; Start 03/11/18 at 22:30 Nitroglycerin (Nitroglycerin (Sl Tab) 0.4 Mg) 1 tab Q5M PRN SL CHEST PAIN; Start 03/11/18 at 22:30 Acetaminophen (Tylenol Tab) 650 mg Q6H PRN PO PAIN LEVEL 1-3 OR FEVER; Start 03/11/18 at 22:30 Acetaminophen/ Hydrocodone Bitart ([place] (5/325)) 1 tab Q6H PRN PO PAIN LEVEL 4-6 Last administered on 03/14/18 08:47; Admin Dose 1 TAB; Start 03/11/18 at 22:30 Docusate Sodium (Colace) 100 mg Q12H PRN PO CONSTIPATION; Start 03/11/18 at 22:30 Bisacodyl (Dulcolax) 5 mg DAILY PRN PO CONSTIPATION; Start 03/11/18 at 22:30 Heparin Sodium (Porcine) (Heparin (5000 Units/1ml)) 5,000 unit Q8 SC Last administered on 03/14/18 14:20; Admin Dose 5,000 UNIT; Start 03/11/18 at 22:30 Guaifenesin/ Dextromethorphan (Robitussin Dm Liquid Cup) 10 ml Q4H PRN PO COUGH Last administered on 03/14/18 05:31; Admin Dose 10 ML; Start 03/11/18 at 23:30 Vancomycin HCl (Vanco Iv Per Pharmacy) VANCOMYCIN PER PHARMACY PER PROTOCOL XX ; Start 03/12/18 at 00:00 Piperacillin Sod/ Tazobactam Sod 100 ml @ 200 mls/hr Q6 IVPB Last administered on 03/14/18 18:15; Admin Dose 200 MLS/HR; Start 03/12/18 at 00:00 Atorvastatin Calcium (Lipitor) 20 mg QHS PO Last administered on 03/13/18 20:19; Admin Dose 20 MG; Start 03/12/18 at 21:00 Fluoxetine HCl (Prozac) 40 mg DAILY PO Last administered on 03/14/18 08:41; Admin Dose 40 MG; Start 03/12/18 at 09:00 Lamotrigine (Lamictal) 100 mg BID PO Last administered on 03/14/18 08:41; Admin Dose 100 MG; Start 03/12/18 at 21:00 Levetiracetam (Keppra) 750 mg BID PO Last administered on 03/14/18 08:41; Admin Dose 750 MG; Start 03/11/18 at 23:30 Levothyroxine Sodium (Synthroid) 100 mcg BEFORE BREAKFAST PO Last administered on 03/14/18 05:23; Admin Dose 100 MCG; Start 03/12/18 at 07:00 Methylprednisolone Sodium Succinate (Solu-Medrol) 40 mg Q6 IV Last administered on 03/14/18 18:16; Admin Dose 40 MG; Start 03/12/18 at 12:00 Vancomycin HCl 250 ml @ 125 mls/hr Q8H IVPB Last administered on 03/14/18at 13:31; Admin Dose 125 MLS/HR; Start 03/13/18 at 22:00 Albuterol/ Ipratropium (Duoneb) 3 ml Q4HWA RESP THERAPY HHN Last administered on 03/14/18at 16:45; Admin Dose 3 ML; Start 03/13/18 at 17:00 Ketorolac Tromethamine (Toradol) 15 mg Q6H PRN IV PAIN Last administered on 03/14/18at 06:15; Admin Dose 15 MG; Start 03/14/18 at 04:30; Stop 03/17/18 at 04:29 Morphine Sulfate (morphine SULFATE (PF)) 1 mg Q4H PRN IV SEVERE PAIN LEVEL 7-10 Last administered on 03/14/18at 16:03; Admin Dose 1 MG; Start 03/14/18 at 11:00 Alprazolam (Xanax) 0.25 mg Q8H PRN PO ANXIETY Last administered on 03/14/18at 17:48; Admin Dose 0.25 MG; Start 03/14/18 at 11:00 Miscellaneous Information (*Rx Drug Level Order Reminder*) VANCO TROUGH @ 2,100 ONCE ONCE XX ; Start 03/14/18 at 21:00; Stop 03/14/18 at 21:01 ELIGIO BIRCH Mar 14, 2018 18:36
[2018-03-14] MEDS: ATORVASTATIN 20 MG TAB PO SCH (20:50)
[2018-03-14] MEDS: DOCUSATE SODIUM 100 MG CAP PO SCH (20:51)
[2018-03-15] VITALS (7 sets, daily range): BP systolic 122–135; BP diastolic 58–74; PULSE 43–63; RESP 18–19
[2018-03-15] MEDS: morphine LIQ (10 MG/5 ML) CUP PO PRN ×2 (03:40→09:02)
[2018-03-15] MEDS: GUAIFENESIN/DM 5ML CUP PO PRN ×2 (03:40→08:52)
[2018-03-15] MEDS: ALPRAZOLAM 0.25 MG TAB PO PRN (03:42)
[2018-03-15] MEDS: PIPER-TAZO 3.375 GM IV (PMX) 100 ML IVPB SCH (05:13)
[2018-03-15] MEDS: METHYLPREDNISOLONE 40 MG INJ IV SCH (05:13)
[2018-03-15] MEDS: LEVOTHYROXINE 100 MCG TAB PO SCH (05:13)
[2018-03-15] MEDS: HEPARIN 5,000 UNIT/1 ML VIAL SC SCH (05:20)
[2018-03-15] MEDS: ONDANSETRON 4 MG INJ IV PRN (05:21)
[2018-03-15] MEDS: VANCOMYCIN 1 GM 250 ML IVPB SCH (06:19)
[2018-03-15] MEDS: ALBUTEROL/IPRATROPIUM (NEB) 3 ML AMP HHN SCH ×2 (08:46→12:41)
[2018-03-15] MEDS: LAMOTRIGINE 100 MG TAB PO SCH (08:53)
[2018-03-15] MEDS: FLUOXETINE 20 MG CAP PO SCH (08:53)
[2018-03-15] MEDS: LEVETIRACETAM 750 MG TAB PO SCH (08:53)
[2018-03-15] MEDS: DOCUSATE SODIUM 100 MG CAP PO SCH (10:30)
--- NOTE | 2018-03-15 10:44 | CONS ---
Date/Time of Note Date/Time of Note DATE: 03/15/18 TIME: 10:42 Consult Date/Type/Reason Admit Date/Time Mar 11, 2018 at 21:08 Initial Consult Date Type of Consultation: Pulm Subjective Continues to improve. Less pleuritic pain no shortness of breath. Objective Vital Signs Date Temp Pulse Resp B/P (MAP) Pulse Ox O2 O2 Flow FiO2 Time Delivery Rate 03/15/18 76 20 97 21 08:47 03/15/18 97.9 122/74 Room Air 07:20 (90) 03/14/18 2.0 20:00 Intake and Output 03/14/18 03/14/18 03/15/18 1515:00 23:00 07:00 IntakeIntake Total 100 ml 2250 ml 1500 ml BalanceBalance 100 ml 2250 ml 1500 ml Exam GENERAL: Well-nourished well-developed lady comfortable at rest VITAL SIGNS: per chart NECK: Supple. No JVD or lymphadenopathy. CARDIAC EXAM: S1, S2. No added sounds or murmurs. CHEST: clear bilaterally, No added sounds, rales or wheezes ABDOMEN: Soft, nontender. No guarding or rebound. EXTREMITIES: No cyanosis, clubbing or edema. NEUROLOGIC: Generalized weakness. No focal deficits. Results/Medications Result Diagram: 03/15/18 0608 03/15/18 0608 Results 24 hrs Laboratory Tests Test 03/15/18 06:08 White Blood Count 8.0 Red Blood Count 2.91 L Hemoglobin 10.0 L Hematocrit 29.1 L Mean Corpuscular Volume 100.0 Mean Corpuscular Hemoglobin 34.4 H Mean Corpuscular Hemoglobin Concent 34.4 Red Cell Distribution Width 12.0 Platelet Count 284 Mean Platelet Volume 9.4 Immature Granulocytes % 0.600 H Neutrophils % 60.0 Lymphocytes % 31.7 Monocytes % 7.2 Eosinophils % 0.4 Basophils % 0.1 Nucleated Red Blood Cells % 0.0 Immature Granulocytes # 0.050 H Neutrophils # 4.8 Lymphocytes # 2.5 Monocytes # 0.6 Eosinophils # 0.0 Basophils # 0.0 Nucleated Red Blood Cells # 0.0 Sodium Level 145 H Potassium Level 3.7 Chloride Level 109 Carbon Dioxide Level 26 Anion Gap 10 # Blood Urea Nitrogen 8 Creatinine 0.57 Est Glomerular Filtrat Rate mL/min > 60 Glucose Level 105 Calcium Level 9.5 Magnesium Level 2.1 Free Thyroxine 1.27 Free Triiodothyronine (T3) pg/mL 2.98 Medications Current Medications IV Flush (NS 3 ml) 3 ml PER PROTOCOL IV ; Start 03/11/18 at 22:30 Ondansetron HCl (Zofran Inj) 4 mg Q6H PRN IV NAUSEA AND/OR VOMITING Last administered on 03/15/18 05:21; Admin Dose 4 MG; Start 03/11/18 at 22:30 Nitroglycerin (Nitroglycerin (Sl Tab) 0.4 Mg) 1 tab Q5M PRN SL CHEST PAIN; Start 03/11/18 at 22:30 Acetaminophen (Tylenol Tab) 650 mg Q6H PRN PO PAIN LEVEL 1-3 OR FEVER; Start 03/11/18 at 22:30 Acetaminophen/ Hydrocodone Bitart ([place] (5/325)) 1 tab Q6H PRN PO PAIN LEVEL 4-6 Last administered on 03/14/18 08:47; Admin Dose 1 TAB; Start 03/11/18 at 22:30 Bisacodyl (Dulcolax) 5 mg DAILY PRN PO CONSTIPATION; Start 03/11/18 at 22:30 Heparin Sodium (Porcine) (Heparin (5000 Units/1ml)) 5,000 unit Q8 SC Last administered on 03/15/18 05:20; Admin Dose 5,000 UNIT; Start 03/11/18 at 22:30 Guaifenesin/ Dextromethorphan (Robitussin Dm Liquid Cup) 10 ml Q4H PRN PO COUGH Last administered on 03/15/18 08:52; Admin Dose 10 ML; Start 03/11/18 at 23:30 Piperacillin Sod/ Tazobactam Sod 100 ml @ 200 mls/hr Q6 IVPB Last administered on 03/15/18 05:13; Admin Dose 200 MLS/HR; Start 03/12/18 at 00:00 Atorvastatin Calcium (Lipitor) 20 mg QHS PO Last administered on 03/14/18 20:50; Admin Dose 20 MG; Start 03/12/18 at 21:00 Fluoxetine HCl (Prozac) 40 mg DAILY PO Last administered on 03/15/18 08:53; Admin Dose 40 MG; Start 03/12/18 at 09:00 Lamotrigine (Lamictal) 100 mg BID PO Last administered on 03/15/18 08:53; Admin Dose 100 MG; Start 03/12/18 at 21:00 Levetiracetam (Keppra) 750 mg BID PO Last administered on 03/15/18 08:53; Admin Dose 750 MG; Start 03/11/18 at 23:30 Levothyroxine Sodium (Synthroid) 100 mcg BEFORE BREAKFAST PO Last administered on 03/15/18 05:13; Admin Dose 100 MCG; Start 03/12/18 at 07:00 Methylprednisolone Sodium Succinate (Solu-Medrol) 40 mg Q6 IV Last administered on 03/15/18 05:13; Admin Dose 40 MG; Start 03/12/18 at 12:00 Vancomycin HCl 250 ml @ 125 mls/hr Q8H IVPB Last administered on 03/15/18 06:19; Admin Dose 125 MLS/HR; Start 03/13/18 at 22:00 Albuterol/ Ipratropium (Duoneb) 3 ml Q4HWA RESP THERAPY HHN Last administered on 03/15/18at 08:46; Admin Dose 3 ML; Start 03/13/18 at 17:00 Ketorolac Tromethamine (Toradol) 15 mg Q6H PRN IV PAIN Last administered on 03/14/18 06:15; Admin Dose 15 MG; Start 03/14/18 at 04:30; Stop 03/17/18 at 04:29 Alprazolam (Xanax) 0.25 mg Q8H PRN PO ANXIETY Last administered on 03/15/18at 03:42; Admin Dose 0.25 MG; Start 03/14/18 at 11:00 Docusate Sodium (Colace) 100 mg Q12H PO ; Start 03/14/18 at 22:30 Morphine Sulfate (morphine) 3 mg Q4H PRN PO SEVERE PAIN LEVEL 7-10 Last administered on 03/15/18 09:02; Admin Dose 3 MG; Start 03/14/18 at 23:00 Assessment/Plan Chief Complaint/Hosp Course IMPRESSION 1. Acute hypoxemic respiratory failure with pleuritic chest pain, likely secondary to infective exacerbation of COPD exacerbation. Mosaic pattern on CT chest has wide differential including air trapping small airways, bronchiolitis, AIP. Significant radiographic improvement with steroids and bronchodilators. Plan 1. Continue steroid trial with bronchodilators and abx. DC home with steroids and antibiotics 2. Encourage OOB 3. Outpatient steroid taper and PFTs Stable for DC today. ÁNGEL ESPINOZA MD, [facility] Mar 15, 2018 10:44
--- NOTE | 2018-03-15 11:12 | DS ---
Date/Time of Note Date/Time of Note DATE: 03/15/18 TIME: 11:08 Discharge Summary Admission/Discharge Info Admit Date/Time Mar 11, 2018 at 21:08 Discharge Date/Time Discharge Diagnosis 1. Bilateral inflammatory airway disease -symptoms improving with RTC bronchodilator therapy -continue steroids, abx, antitussive -patient has outpatient appointment to see rheumatology 2. Seizure disorder: -Continue Keppra, Lamictal, 3. Concern for possible autoimmune d/o -patient has been commenced on outpt workup for autoimmune d/o by her PCP -has pending rheum appt 4. Hyperlipidemia: 5. mood disorder: Patient has a history of depression, anxiety, -home medications have been resumed 6. Hypothyroidism -TSH low, hold levothyroxine for now, check free T3 and free t4 7. HTN: -good control on current regimen 8. Lethargy: resolved . Patient Condition: Stable Consults Pulmunology: Jeannette . Procedures See hospital course . Hospital Course 47-year-old female who had presented to outside emergency room with shortness of breath and cough and was managed for the diagnosis as above. She was seen by the pulmonology team because her CT had showed nonspecific findings of bilateral diffuse patchy ground glass opacification and mild interlobular septal thickening. There was concern for atypical infection and some other non- common causes. There was also concern for possible pulmonary arterial hypertension. Patient was managed with steroids and empiric antibiotics and has done well she was also put on scheduled bronchodilator therapy as well as inhaled steroids. At this time she has been cleared for discharge by pulmonary and will follow-up as outpatient. Of note is that her primary doctor is in the process of being worked up for an autoimmune disorder. She says a lot of her labs were abnormal, but she is not sure which. She is actually being referred to rheumatology and has an upcoming appointment. She has been encouraged to keep this appointment and further management will be per her primary care doctor. Comorbidities were also aggressively managed as per Med records. Patient at this time has been evaluated and examined in detail and is assessed to be in stable condition and ready for discharge. . Home Meds Reported Medications Lamotrigine* (Lamictal*) 100 Mg Tablet, 100 MG PO BID, TAB 03/11/18 Levetiracetam* (Keppra*) 500 Mg/5 Ml Solution, 750 MG PO BID, BOTTLE 1/7/19 Ibuprofen* (Ibuprofen*) 200 Mg Capsule, 200 MG PO Q6, CAP 03/11/18 Oxycodone HCl/Acetaminophen (Percocet 5-325 mg Tablet) 1 Each Tablet, 1 EACH PO Q6, TAB 03/11/18 Alprazolam* (Xanax*) 1 Mg Tab, 1 MG PO Q8H PRN for ANXIETY, TAB 03/11/18 Fluoxetine Hcl* (Prozac*) 40 Mg Capsule, 40 MG PO DAILY, CAP 03/11/18 Levothyroxine Sodium* (Synthroid*) 100 Mcg Tablet, 100 MCG PO BEFORE BREAKFAST, #30 TAB 03/11/18 Atorvastatin Calcium* (Atorvastatin Calcium*) 20 Mg Tablet, 20 MG PO QHS, #30 TAB 03/11/18 [Fironel] No Conflict Check 09/20/09 Levetiracetam* (Keppra*) 500 Mg Tablet 09/20/09 Oxcarbazepine* (Trileptal*) 600 Mg Tablet 09/20/09 Follow-up Plan Follow-up with your primary care doctor in the next 1-2 weeks, and please make sure you keep the rheumatology appointment that you already have set up Primary Care Provider Not On Staff Doctor Time spent on discharge: > 30 minutes Pending Labs Laboratory Tests Test 03/15/18 06:08 White Blood Count 8.0 10^3/ul (4.8-10.8) Red Blood Count 2.91 10^6/ul (4.20-5.40) Hemoglobin 10.0 g/dl (12.0-16.0) Hematocrit 29.1 % (37.0-47.0) Mean Corpuscular Volume 100.0 fl (82.0-101.0) Mean Corpuscular Hemoglobin 34.4 pg (29.0-33.0) Mean Corpuscular Hemoglobin Concent 34.4 g/dl (32.0-37.0) Red Cell Distribution Width 12.0 % (11.5-14.5) Platelet Count 284 10^3/UL (140-415) Mean Platelet Volume 9.4 fl (7.4-10.4) Immature Granulocytes % 0.600 % (0.001-0.429) Neutrophils % 60.0 % (39.0-77.0) Lymphocytes % 31.7 % (15.0-51.0) Monocytes % 7.2 % (0.0-11.0) Eosinophils % 0.4 % (0.0-7.0) Basophils % 0.1 % (0.0-2.0) Nucleated Red Blood Cells % 0.0 /100WBC (0.0-0.0) Immature Granulocytes # 0.050 10^3/ul (0.0-0.031) Neutrophils # 4.8 10^3/ul (1.6-7.5) Lymphocytes # 2.5 10^3/ul (0.8-2.9) Monocytes # 0.6 10^3/ul (0.3-0.9) Eosinophils # 0.0 10^3/ul (0.0-0.5) Basophils # 0.0 10^3/ul (0.0-0.1) Nucleated Red Blood Cells # 0.0 10^3/ul (0.0-0.0) Sodium Level 145 mmol/L (135-144) Potassium Level 3.7 mmol/L (3.5-5.1) Chloride Level 109 mmol/L (97-110) Carbon Dioxide Level 26 mmol/L (21-31) Anion Gap 10 (5-13) Blood Urea Nitrogen 8 mg/dl (7-20) Creatinine 0.57 mg/dl (0.44-1.00) Est Glomerular Filtrat Rate mL/min > 60 mL/min (>60) Glucose Level 105 mg/dl (70-220) Calcium Level 9.5 mg/dl (8.4-10.2) Magnesium Level 2.1 mg/dl (1.7-2.5) Free Thyroxine 1.27 ng/dl (0.64-1.79) Free Triiodothyronine (T3) pg/mL 2.98 pg/ml (2.77-5.27) ELIGIO BIRCH Mar 15, 2018 11:12
[2018-03-15] MEDS ORDERED: DOCU-216 PO (11:17)
[2018-03-15] MEDS ORDERED: GUAI120S26 PO (11:17)
[2018-03-15] MEDS ORDERED: AMOX1TAB10 PO (11:17)
[2018-03-15] MEDS ORDERED: LEVE-5 PO (11:17)
[2018-03-15] MEDS ORDERED: PRED10TA PO (11:17)
--- NOTE | 2018-03-15 11:18 | PDOCDIS ---
Discharge Instructions DIAGNOSIS Discharge Diagnosis 1. Bilateral inflammatory airway disease . CONDITION [id number] Patient Condition: [id number] Stable HOME CARE INSTRUCTIONS: [id number] Diet Instructions: [id number] Low Fat /Cholesterol ACTIVITY: [id number] Activity Restrictions: [id number] Slowly Increase Activity Rest between Activity FOLLOW UP/APPOINTMENTS Follow-up Plan Follow-up with your primary care doctor in the next 1-2 weeks, and please make sure you keep the rheumatology appointment that you already have set up ELIGIO BIRCH Mar 15, 2018 11:18
== END 2018-03-15 14:10 | disposition home or self-care (01) | DRG 190 ==
LOC: TEL 21:08
PROVIDERS: ADMIT Internal Medicine; ATTEND Internal Medicine
DX: J44.1 Chronic obstructive pulmonary disease with (acute) exacerbation (principal); J96.01 Acute respiratory failure with hypoxia; G40.909 Epilepsy, unspecified, not intractable, without status epilepticus; E78.5 Hyperlipidemia, unspecified; F39 Unspecified mood [affective] disorder; E03.9 Hypothyroidism, unspecified; Z72.0 Tobacco use
CPT/HCPCS: 36600; 71045; 71250; 80048; 80053; 80061; 80202; 81001; 82607; 82746; 82803; 83036; 83605; 83735; 84439; 84443; 84481; 84703; 85025; 85651; 86021; 86038; 86403; 86703; 86738; 87040; 87449; 94640; 94664; J1644; J1885; J2274; J2405; J2543; J2920; J3370; J7050; J7512